=== PATIENT | male | born 1965 | race African-American/Black ===

== ENCOUNTER 2017-03-23 10:43 | Inpatient (IN) | payer OTHER ==
[2017-03-23 11:52] VITALS: BMI 37.8
--- NOTE | 2017-03-23 13:48 | HP ---
CIWA Score - CIWA Score Nausea/Vomitin-No Nausea/No Vomiting Muscle Tremors: 4-Moderate,w/Arms Extend Anxiety: 3 Agitation: 3 Paroxysmal Sweats: No Perspiration Orientation: 0-Oriented Tacttile Disturbances: 2-Mild Itch/Numbness/Burn Auditory Disturbances: 0-None Visual Disturbances: 3-Moderate Sensitivity Headache: 0-None Present CIWA-Ar Total Score: 15 Admission ROS BHS - HPI Chief Complaint: "I'm here for help and to get off of Alcohol and Crack Cocaine." Pt. is here to Detox from Alcohol. Allergies/Adverse Reactions: Allergies Allergy/AdvReac Type Severity Reaction Status Date / Time No Known Allergies Allergy Verified 03/23/17 12:32 History of Present Illness: Pt. is a 51 YO male here to Detox from Alcohol. Pt. has had several previous Detox admissions at [facility] (last: 02/2013). Longest Period of Sobriety in past: 5 years (1999- 2004). Exam Limitations: No Limitations - Ebola screening Have you traveled outside of the country in the last 21 days: No (N) Have you had contact with anyone from an Ebola affected area: No Have you been sick,other than usual withdrawal symptoms: No Do you have a fever: No - Review of Systems Constitutional: Malaise, Changes in sleep, Unexplained wgt Loss (Lost approx. 10 lbs. over last 2 months.) EENT: reports: Blurred Vision Respiratory: reports: No Symptoms reported Cardiac: reports: No Symptoms Reported GI: reports: Indigestion : reports: No Symptoms Reported Musculoskeletal: reports: No Symptoms Reported Integumentary: reports: No Symptoms Reported Neuro: reports: Tremors Endocrine: reports: No Symptoms Reported Hematology: reports: No Symptoms Reported Psychiatric: reports: Judgement Intact, Mood/Affect Appropiate, Orientated x3, Anxious Other Systems: Reviewed and Negative Patient History - Patient Medical History Hx Anemia: No Hx Asthma: No Hx Chronic Obstructive Pulmonary Disease (COPD): No Hx Cancer: No Hx Cardiac Disorders: No Hx Congestive Heart Failure: No Hx Hypertension: Yes Hx Hypercholesterolemia: No Hx Pacemaker: No HX Cerebrovascular Accident: No Hx Seizures: No Hx Dementia: No Hx Diabetes: No Hx Gastrointestinal Disorders: No Hx Liver Disease: No Hx Genitourinary Disorders: No Hx Sexually Transmitted Disorders: No Hx Renal Disease (ESRD): No Hx Thyroid Disease: No Hx Human Immunodeficiency Virus (HIV): No Hx Hepatitis C: No (Last tested: 02/2017: NEGATIVE.) Hx Depression: No Hx Suicide Attempt: No (PATIENT DENIES CURRENT SI / HI.) Hx Schizophrenia: No Other Medical History: Benign superficial growth on posterior head. Plans to have removed. - Patient Surgical History Past Surgical History: No Hx Neurologic Surgery: No Hx Cataract Extraction: No Hx Cardiac Surgery: No Hx Lung Surgery: No Hx Breast Surgery: No Hx Breast Biopsy: No Hx Abdominal Surgery: No Hx Appendectomy: No Hx Cholecystectomy: No Hx Genitourinary Surgery: No Hx Section: No Hx Orthopedic Surgery: No Other Surgical History: SWELLING ON BACK OF THE HEAD SINCE HE WAS 20 YRS. OLD Anesthesia Reaction: No - PPD History Previous Implant?: Yes Documented Results: Negative w/o proof Implanted On Prior [facility] Admission?: Yes Date: 02/23/13 Results: 0 mm PPD to be Administered?: Yes - Reproductive History Patient is a Female of Child Bearing Age (11 -55 yrs old): No (PATIENT IS MALE.) - Smoking Cessation Smoking history: Former smoker Have you smoked in the past 12 months: Yes Aproximately how many cigarettes per day: 1 If you are a former smoker, when did you quit?: Approx. 2 months ago. Cigars Per Day: 0 Hx Chewing Tobacco Use: No Initiated information on smoking cessation: Yes 'Breaking Loose' booklet given: 03/23/17 (GIVEN ON UNIT.) - Substance & Tx. History Hx Alcohol Use: Yes Hx Substance Use: Yes Substance Use Type: Alcohol, Cocaine Hx Substance Use Treatment: Yes (Previous Detox admissions at [facility]; Most Recent : 02/2013.) - Substances Abused Crack Route: Smoking Frequency: 3-6 times per week Amount used: $100 Age of first use: 30 Date of Last Use: 03/23/17 Alcohol-beer Route: Oral Frequency: Daily Amount used: 2-3 6 pks. Age of first use: 17 Date of Last Use: 03/23/17 Family Disease History - Family Disease History Family History: Denies Admission Physical Exam BHS - Vital Signs Vital Signs: Vital Signs - 24 hr 03/23/17 11:49 Temperature 95.4 F L Pulse Rate 89 Respiratory 18 Rate Blood Pressure 156/97 - Physical General Appearance: Yes: No Apparent Distress, Nourished, Appropriately Dressed , Tremorous HEENTM: Yes: Hearing grossly Normal, Normocephalic, Normal Voice, CORBIN, Pharynx Normal Respiratory: Yes: Chest Non-Tender, Lungs Clear, No Respiratory Distress, No Accessory Muscle Use Neck: Yes: No masses,lesions,Nodules, Supple, Trachea in good position Breast: Yes: Breast Exam Deferred Cardiology: Yes: Regular Rhythm, Regular Rate, S1, S2 Abdominal: Yes: Normal Bowel Sounds, Non Tender, Soft, Protuberent Genitourinary: Yes: Within Normal Limits Back: Yes: Normal Inspection Musculoskeletal: Yes: full range of Motion, Gait Steady Extremities: Yes: Normal Range of Motion, Non-Tender, Tremors Neurological: Yes: Fully Oriented, Alert, Normal Mood/Affect, Normal Response Integumentary: Yes: Normal Color, Dry, Warm Lymphatic: Yes: Within Normal Limits - Diagnostic (1) Alcohol dependence with uncomplicated withdrawal Current Visit: Yes Status: Acute (2) Cocaine dependence, uncomplicated Current Visit: Yes Status: Acute (3) 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
[2017-03-23] MEDS ORDERED: P-EPHED 60MG/TRIPROLIDI 2.5MG TABLET PO PRN (14:27)
[2017-03-23] MEDS ORDERED: IBUPROFEN 400 MG TABLET (FP) PO PRN (14:27)
[2017-03-23] MEDS ORDERED: LOPERAMIDE HCL 2 MG CAPSULE PO PRN (14:27)
[2017-03-23] MEDS ORDERED: MAG HYDROX/AL HYDROX/SIMETH 30 ML UNIT-DOSE CUP PO PRN (14:27)
[2017-03-23] MEDS ORDERED: ACETAMINOPHEN 325 MG TABLET (FP) PO PRN (14:27)
[2017-03-23] MEDS ORDERED: chlordiazePOXIDE HCL 25 MG CAPSULE PO PRN (14:27)
[2017-03-23] MEDS ORDERED: MAGNESIUM CITRATE 300 ML BOTTLE PO PRN (14:27)
[2017-03-23] MEDS ORDERED: MAGNESIUM HYDROX 2400MG/30ML ORAL SUSPENSION 30 ML CUP PO PRN (14:27)
[2017-03-23] MEDS ORDERED: MENTHOL/PHENOL 1 EACH UD MM PRN (14:27)
[2017-03-23] MEDS ORDERED: guaiFENesin/D-METHORPHAN HB 10 ML UNIT-DOSE CUPS PO PRN (14:27)
[2017-03-23] MEDS ORDERED: chlordiazePOXIDE HCL 25 MG CAPSULE PO ONE (15:15)
[2017-03-23] MEDS: TOLNAFTATE 1% CREAM 15 GM TUBE TP SCH ×2 (15:32→22:56)
[2017-03-23] MEDS: VALSARTAN 40 MG TABLET (FP) PO SCH (15:40)
[2017-03-23] MEDS: chlordiazePOXIDE HCL 25 MG CAPSULE PO SCH ×2 (17:21→22:56)
[2017-03-23 19:51] LABS: URINE APPEARANCE CLEAR; URINE BILIRUBIN NEGATIVE (NEGATIVE); URINE BLOOD NEGATIVE (NEGATIVE); URINE COLOR LTYELLOW; URINE GLUCOSE (UA) NEGATIVE (NEGATIVE); URINE KETONE NEGATIVE (NEGATIVE); URINE NITRITE NEGATIVE (NEGATIVE); URINE PROTEIN NEGATIVE (NEGATIVE); URINE UROBILINOGEN NEGATIVE mg/dL (0.2-1.0)
[2017-03-23 21:18] LABS: URINE LEUK ESTERASE Negative (NEGATIVE)
[2017-03-23] MEDS: AMMONIUM LACTATE 12% LOTION 225 GM BOTTLE TP SCH (22:56)
[2017-03-23] MEDS: THIAMINE HCL 100 MG TABLET (FP) PO SCH (22:56)
[2017-03-24] MEDS: chlordiazePOXIDE HCL 25 MG CAPSULE PO SCH ×4 (05:56→22:13)
[2017-03-24 10:13] LABS: MCH 22.7 pg (25.7-33.7); MCHC 30.8 g/dl (32.0-35.9); MEAN CELL VOLUME 73.7 fl (80-96); MEAN PLT VOLUME 9.5 fl (7.5-11.1); PLATELET COUNT 179 K/MM3 (134-434); RDW 14.9 % (11.9-15.9); WHITE BLOOD COUNT 4.3 K/mm3 (4.0-10.0)
[2017-03-24] MEDS: AMMONIUM LACTATE 12% LOTION 225 GM BOTTLE TP SCH ×2 (10:31→22:13)
[2017-03-24] MEDS: PRENATAL VITAMINS W/ FOLIC ACID TABLET (FP) PO SCH (10:32)
[2017-03-24] MEDS: TOLNAFTATE 1% CREAM 15 GM TUBE TP SCH ×2 (10:32→22:13)
[2017-03-24 11:11] LABS: ALBUMIN 3.8 g/dl (3.4-5.0); ANION GAP 11 (8-16); BILIRUBIN,TOTAL 0.5 mg/dL (0.2-1.0); CALCIUM 8.8 mg/dL (8.5-10.1); CO2 23 mmol/L (21-32); CREATININE 1.3 mg/dL (0.7-1.3); GLUCOSE,RANDOM 107 mg/dL (74-106); SGOT/AST 6 U/L (15-37); SGPT/ALT 19 U/L (12-78)
[2017-03-24 11:12] LABS: ALK PHOS 35 U/L (45-117); TOT PROT 7.3 g/dl (6.4-8.2)
[2017-03-24] MEDS: VALSARTAN 40 MG TABLET (FP) PO SCH (12:30)
[2017-03-24] MEDS: ENALAPRIL MALEATE 10 MG TABLET (FP) PO SCH (12:31)
--- NOTE | 2017-03-24 16:03 | PN ---
[facility] CIWA - CIWA Score Nausea/Vomitin-No Nausea/No Vomiting Muscle Tremors: 5 Anxiety: 4-Mod. Anxious/Guarded Agitation: 3 Paroxysmal Sweats: 3 Orientation: 0-Oriented Tacttile Disturbances: 2-Mild Itch/Numbness/Burn Auditory Disturbances: 0-None Visual Disturbances: 1-Very Mild Sensitivity Headache: 0-None Present CIWA-Ar Total Score: 18 S Progress Note (SOAP) Subjective: Tremors, Anxious, Sweating. Objective: PT. A & O X 3, OBSERVED AMBULATING ON UNIT. NO ACUTE DISTRESS. PT. DENIES CHEST PAIN. 03/24/17 15:59 Vital Signs Temperature 97.5 F L 03/24/17 13:09 Pulse Rate 98 H 03/24/17 13:09 Respiratory Rate 18 03/24/17 13:09 Blood Pressure 148/85 03/24/17 13:09 O2 Sat by Pulse Oximetry (%) Laboratory Tests 03/23/17 03/24/17 03/24/17 19:00 06:20 06:20 WBC 4.3 D RBC 5.47 D Hgb 12.4 D Hct 40.3 D MCV 73.7 L MCH 22.7 L MCHC 30.8 L RDW 14.9 Plt Count 179 MPV 9.5 D Sodium 141 Potassium 4.2 Chloride 107 Carbon Dioxide 23 Anion Gap 11 BUN 18 Creatinine 1.3 Creat Clearance w eGFR 58.20 Random Glucose 107 H Calcium 8.8 Total Bilirubin 0.5 AST 6 L D ALT 19 D Alkaline Phosphatase 35 L Total Protein 7.3 Albumin 3.8 Urine Color Ltyellow Urine Appearance Clear Urine pH 5.0 Ur Specific [place] 1.021 Urine Protein Negative Urine Glucose (UA) Negative Urine Ketones Negative Urine Blood Negative Urine Nitrite Negative Urine Bilirubin Negative Urine Urobilinogen Negative Ur Leukocyte Esterase Negative RPR Titer 03/24/17 06:20 WBC RBC Hgb Hct MCV MCH MCHC RDW Plt Count MPV Sodium Potassium Chloride Carbon Dioxide Anion Gap BUN Creatinine Creat Clearance w eGFR Random Glucose Calcium Total Bilirubin AST ALT Alkaline Phosphatase Total Protein Albumin Urine Color Urine Appearance Urine pH Ur Specific [place] Urine Protein Urine Glucose (UA) Urine Ketones Urine Blood Urine Nitrite Urine Bilirubin Urine Urobilinogen Ur Leukocyte Esterase RPR Titer Nonreactive LABS NOTED. Assessment: 03/24/17 15:59 WITHDRAWAL SYMPTOMS. Plan: CONTINUE DETOX. ENALAPRIL, 20 MG PO DAILY FOR ELEVATED BP (PATIENT REPORTS THAT HE TOOK THIS MEDICATION IN RECENT PAST PRIOR TO ADMISSION TO DETOX).
--- NOTE | 2017-03-24 16:39 | EKG ---
Test Reason : Blood Pressure : / mmHG Vent. Rate : 087 BPM Atrial Rate : 087 BPM P-R Int : 158 ms QRS Dur : 084 ms QT Int : 342 ms P-R-T Axes : 069 -18 -17 degrees QTc Int : 411 ms NORMAL SINUS RHYTHM NONSPECIFIC T WAVE ABNORMALITY ABNORMAL ECG NO PREVIOUS ECGS AVAILABLE Confirmed by FRANCISCO DODD MD ([id number]) on 03/24/2017 4:39:21 PM Referred By: Confirmed By:FRANCISCO DODD MD
[2017-03-24] MEDS: THIAMINE HCL 100 MG TABLET (FP) PO SCH (22:13)
[2017-03-24] MEDS: hydrOXYzine PAMOATE 50 MG CAPSULE (FP) PO PRN (22:14)
[2017-03-25] MEDS: chlordiazePOXIDE HCL 25 MG CAPSULE PO SCH ×3 (05:53→10:30)
[2017-03-25] MEDS: AMMONIUM LACTATE 12% LOTION 225 GM BOTTLE TP SCH ×2 (10:30→23:25)
[2017-03-25] MEDS: PRENATAL VITAMINS W/ FOLIC ACID TABLET (FP) PO SCH (10:30)
[2017-03-25] MEDS: ENALAPRIL MALEATE 10 MG TABLET (FP) PO SCH (10:30)
[2017-03-25] MEDS: TOLNAFTATE 1% CREAM 15 GM TUBE TP SCH ×2 (10:30→23:25)
[2017-03-25] MEDS: VALSARTAN 40 MG TABLET (FP) PO SCH (10:30)
--- NOTE | 2017-03-25 13:24 | PN ---
S CIWA - CIWA Score Nausea/Vomitin Muscle Tremors: 4-Moderate,w/Arms Extend Anxiety: 4-Mod. Anxious/Guarded Agitation: 2 Paroxysmal Sweats: 3 Orientation: 0-Oriented Tacttile Disturbances: 1-Very Mild Itch/Numbness Auditory Disturbances: 0-None Visual Disturbances: 0-None Headache: 1-Very Mild CIWA-Ar Total Score: 18 BHS Progress Note (SOAP) Subjective: Anxious, sweating, tremor, nausea Objective: 03/25/17 13:23 Last Vital Signs Temp Pulse Resp BP Pulse Ox 97.5 F L 101 H 18 142/90 03/25/17 10:25 03/25/17 10:25 03/25/17 10:25 03/25/17 10:25 Laboratory Tests 03/23/17 03/24/17 03/24/17 19:00 06:20 06:20 WBC 4.3 D RBC 5.47 D Hgb 12.4 D Hct 40.3 D MCV 73.7 L MCH 22.7 L MCHC 30.8 L RDW 14.9 Plt Count 179 MPV 9.5 D Sodium 141 Potassium 4.2 Chloride 107 Carbon Dioxide 23 Anion Gap 11 BUN 18 Creatinine 1.3 Creat Clearance w eGFR 58.20 Random Glucose 107 H Calcium 8.8 Total Bilirubin 0.5 AST 6 L D ALT 19 D Alkaline Phosphatase 35 L Total Protein 7.3 Albumin 3.8 Urine Color Ltyellow Urine Appearance Clear Urine pH 5.0 Ur Specific [place] 1.021 Urine Protein Negative Urine Glucose (UA) Negative Urine Ketones Negative Urine Blood Negative Urine Nitrite Negative Urine Bilirubin Negative Urine Urobilinogen Negative Ur Leukocyte Esterase Negative RPR Titer 03/24/17 06:20 WBC RBC Hgb Hct MCV MCH MCHC RDW Plt Count MPV Sodium Potassium Chloride Carbon Dioxide Anion Gap BUN Creatinine Creat Clearance w eGFR Random Glucose Calcium Total Bilirubin AST ALT Alkaline Phosphatase Total Protein Albumin Urine Color Urine Appearance Urine pH Ur Specific [place] Urine Protein Urine Glucose (UA) Urine Ketones Urine Blood Urine Nitrite Urine Bilirubin Urine Urobilinogen Ur Leukocyte Esterase RPR Titer Nonreactive Labs noted Assessment: 03/25/17 13:23 Withdrawal symptoms Plan: Continue detox Encouraged to drink lots of water
[2017-03-25] MEDS: chlordiazePOXIDE 5 MG CAPSULE PO SCH ×2 (16:42→22:28)
[2017-03-25] MEDS: THIAMINE HCL 100 MG TABLET (FP) PO SCH (22:28)
[2017-03-25] MEDS: hydrOXYzine PAMOATE 50 MG CAPSULE (FP) PO PRN (22:29)
[2017-03-26] MEDS: chlordiazePOXIDE 5 MG CAPSULE PO SCH ×2 (06:23→10:24)
[2017-03-26] MEDS: PRENATAL VITAMINS W/ FOLIC ACID TABLET (FP) PO SCH (10:24)
[2017-03-26] MEDS: TOLNAFTATE 1% CREAM 15 GM TUBE TP SCH ×2 (10:24→23:35)
[2017-03-26] MEDS: AMMONIUM LACTATE 12% LOTION 225 GM BOTTLE TP SCH ×2 (10:25→23:35)
[2017-03-26] MEDS: HYDROCHLOROTHIAZIDE 25 MG TABLET (FP) PO SCH (10:27)
[2017-03-26] MEDS: ENALAPRIL MALEATE 10 MG TABLET (FP) PO SCH ×2 (10:27→23:35)
[2017-03-26] MEDS: METOPROLOL TARTRATE 50 MG TABLET (FP) PO SCH ×2 (10:28→23:35)
--- NOTE | 2017-03-26 10:43 | PN ---
[facility] Progress Note (SOAP) Subjective: IRRITABILITY,AGITATIONS,SWEATS. PT ANXIOUS ABOUT AFTERCARE. ENCOURAGED PATIENT TO FOLLOW UP WITH HIS COUNSELOR SHARON TODAY TO FINALIZE AFTERCARE PLANS. PT HAD AN EXTREME ELEVATION OFBP THIS MORNING WHILE EXHIBITING WORRIES OVER TOMORROW'S DISCHARGE DAY. PT IS ON ENALAPRIL 20 MG PO BID, HYDROCHLOROTHIAZIDE 25 MG DAILY AND METOPROLOL TAR 50 MG PO BID. D/C'D PREVIOUS ADMISSION MED [facility] AND RESTARTED PT'S HOME MEDS. Objective: 03/26/17 10:39 Vital Signs Temperature 96.6 F L 03/26/17 09:07 Pulse Rate 109 H 03/26/17 09:07 Respiratory Rate 20 03/26/17 09:07 Blood Pressure 180/109 03/26/17 09:07 O2 Sat by Pulse Oximetry (%) Laboratory Last Values WBC 4.3 K/mm3 (4.0-10.0) D 03/24/17 06:20 RBC 5.47 M/mm3 (4.00-5.60) D 03/24/17 06:20 Hgb 12.4 GM/dL (11.7-16.9) D 03/24/17 06:20 Hct 40.3 % (35.4-49) D 03/24/17 06:20 MCV 73.7 fl (80-96) L 03/24/17 06:20 MCH 22.7 pg (25.7-33.7) L 03/24/17 06:20 MCHC 30.8 g/dl (32.0-35.9) L 03/24/17 06:20 RDW 14.9 % (11.9-15.9) 03/24/17 06:20 Plt Count 179 K/MM3 (134-434) 03/24/17 06:20 MPV 9.5 fl (7.5-11.1) D 03/24/17 06:20 Sodium 141 mmol/L (136-145) 03/24/17 06:20 Potassium 4.2 mmol/L (3.5-5.1) 03/24/17 06:20 Chloride 107 mmol/L (98-107) 03/24/17 06:20 Carbon Dioxide 23 mmol/L (21-32) 03/24/17 06:20 Anion Gap 11 (8-16) 03/24/17 06:20 BUN 18 mg/dL (7-18) 03/24/17 06:20 Creatinine 1.3 mg/dL (0.7-1.3) 03/24/17 06:20 Creat Clearance w eGFR 58.20 (>60) 03/24/17 06:20 Random Glucose 107 mg/dL (74-106) H 03/24/17 06:20 Calcium 8.8 mg/dL (8.5-10.1) 03/24/17 06:20 Total Bilirubin 0.5 mg/dL (0.2-1.0) 03/24/17 06:20 AST 6 U/L (15-37) L D 03/24/17 06:20 ALT 19 U/L (12-78) D 03/24/17 06:20 Alkaline Phosphatase 35 U/L (45-117) L 03/24/17 06:20 Total Protein 7.3 g/dl (6.4-8.2) 03/24/17 06:20 Albumin 3.8 g/dl (3.4-5.0) 03/24/17 06:20 Urine Color Ltyellow 03/23/17 19:00 Urine Appearance Clear 03/23/17 19:00 Urine pH 5.0 (5.0-8.0) 03/23/17 19:00 Ur Specific [place] 1.021 (1.001-1.035) 03/23/17 19:00 Urine Protein Negative (NEGATIVE) 03/23/17 19:00 Urine Glucose (UA) Negative (NEGATIVE) 03/23/17 19:00 Urine Ketones Negative (NEGATIVE) 03/23/17 19:00 Urine Blood Negative (NEGATIVE) 03/23/17 19:00 Urine Nitrite Negative (NEGATIVE) 03/23/17 19:00 Urine Bilirubin Negative (NEGATIVE) 03/23/17 19:00 Urine Urobilinogen Negative mg/dL (0.2-1.0) 03/23/17 19:00 Ur Leukocyte Esterase Negative (NEGATIVE) 03/23/17 19:00 RPR Titer Nonreactive (NONREACTIVE) 03/24/17 06:20 Assessment: 03/26/17 10:39 WITHDRAWAL SX Plan: CONTINUE DETOX
[2017-03-26] MEDS: chlordiazePOXIDE HCL 10 MG CAPSULE PO SCH ×2 (17:51→23:35)
[2017-03-26] MEDS: THIAMINE HCL 100 MG TABLET (FP) PO SCH (23:35)
[2017-03-27] MEDS: chlordiazePOXIDE HCL 10 MG CAPSULE PO SCH (05:26)
[2017-03-27 06:10] VITALS: PULSE 86
[2017-03-27 09:15] VITALS: BP 118/75; TEMP 98.4
[2017-03-27] MEDS: ENALAPRIL MALEATE 10 MG TABLET (FP) PO SCH (10:30)
[2017-03-27] MEDS: HYDROCHLOROTHIAZIDE 25 MG TABLET (FP) PO SCH (10:30)
[2017-03-27] MEDS: METOPROLOL TARTRATE 50 MG TABLET (FP) PO SCH (10:30)
[2017-03-27] MEDS: PRENATAL VITAMINS W/ FOLIC ACID TABLET (FP) PO SCH (10:30)
[2017-03-27] MEDS: TOLNAFTATE 1% CREAM 15 GM TUBE TP SCH (10:30)
[2017-03-27] MEDS: AMMONIUM LACTATE 12% LOTION 225 GM BOTTLE TP SCH (10:31)
--- NOTE | 2017-03-27 10:55 | DS ---
[facility] Detox Discharge Summary Admission Date: 03/23/17 Discharge Date: 03/27/17 - History Present History: Alcohol Dependence, Cocaine Dependence Additional Comments: DETOX COMPLETED. ALERT O X 3. NAD. PT INSTRUCTED TO FOLLOW UP WITH PMD AT [facility] FOR MEDICAL MANAGEMENT OF COMORBID CONDITIONS. THIRTY DAYS RX SENT TO [facility] TO BE PICKED UP BY PATIENT FOR ENALAPRIL, HYDROCHLOROTHIAZIDE AND METOPROLOL. Pertinent Past History: HTN BENIGN LIPOMATOUS NEOPLASM OF SKIN, HEAD - Physical Exam Results Vital Signs: Vital Signs Temperature 98.4 F 03/27/17 09:13 Pulse Rate 86 03/27/17 09:13 Respiratory Rate 18 03/27/17 09:13 Blood Pressure 118/75 03/27/17 09:13 O2 Sat by Pulse Oximetry (%) Pertinent Admission Physical Exam Findings: WITHDRAWAL SX Laboratory Last Values WBC 4.3 K/mm3 (4.0-10.0) D 03/24/17 06:20 RBC 5.47 M/mm3 (4.00-5.60) D 03/24/17 06:20 Hgb 12.4 GM/dL (11.7-16.9) D 03/24/17 06:20 Hct 40.3 % (35.4-49) D 03/24/17 06:20 MCV 73.7 fl (80-96) L 03/24/17 06:20 MCH 22.7 pg (25.7-33.7) L 03/24/17 06:20 MCHC 30.8 g/dl (32.0-35.9) L 03/24/17 06:20 RDW 14.9 % (11.9-15.9) 03/24/17 06:20 Plt Count 179 K/MM3 (134-434) 03/24/17 06:20 MPV 9.5 fl (7.5-11.1) D 03/24/17 06:20 Sodium 141 mmol/L (136-145) 03/24/17 06:20 Potassium 4.2 mmol/L (3.5-5.1) 03/24/17 06:20 Chloride 107 mmol/L (98-107) 03/24/17 06:20 Carbon Dioxide 23 mmol/L (21-32) 03/24/17 06:20 Anion Gap 11 (8-16) 03/24/17 06:20 BUN 18 mg/dL (7-18) 03/24/17 06:20 Creatinine 1.3 mg/dL (0.7-1.3) 03/24/17 06:20 Creat Clearance w eGFR 58.20 (>60) 03/24/17 06:20 Random Glucose 107 mg/dL (74-106) H 03/24/17 06:20 Calcium 8.8 mg/dL (8.5-10.1) 03/24/17 06:20 Total Bilirubin 0.5 mg/dL (0.2-1.0) 03/24/17 06:20 AST 6 U/L (15-37) L D 03/24/17 06:20 ALT 19 U/L (12-78) D 03/24/17 06:20 Alkaline Phosphatase 35 U/L (45-117) L 03/24/17 06:20 Total Protein 7.3 g/dl (6.4-8.2) 03/24/17 06:20 Albumin 3.8 g/dl (3.4-5.0) 03/24/17 06:20 Urine Color Ltyellow 03/23/17 19:00 Urine Appearance Clear 03/23/17 19:00 Urine pH 5.0 (5.0-8.0) 03/23/17 19:00 Ur Specific [place] 1.021 (1.001-1.035) 03/23/17 19:00 Urine Protein Negative (NEGATIVE) 03/23/17 19:00 Urine Glucose (UA) Negative (NEGATIVE) 03/23/17 19:00 Urine Ketones Negative (NEGATIVE) 03/23/17 19:00 Urine Blood Negative (NEGATIVE) 03/23/17 19:00 Urine Nitrite Negative (NEGATIVE) 03/23/17 19:00 Urine Bilirubin Negative (NEGATIVE) 03/23/17 19:00 Urine Urobilinogen Negative mg/dL (0.2-1.0) 03/23/17 19:00 Ur Leukocyte Esterase Negative (NEGATIVE) 03/23/17 19:00 RPR Titer Nonreactive (NONREACTIVE) 03/24/17 06:20 - Treatment Hospital Course: Detox Protocol Followed, Detoxed Safely, Responded well, Discharged Condition Good, Rehab Referral Accepted Patient has Accepted a Rehab Referral to: [facility] - Medication Discharge Medications: Ambulatory Orders Enalapril Maleate [Vasotec] 20 mg PO BID #60 tablet 03/27/17 Hydrochlorothiazide 25 mg PO DAILY #30 tablet 03/27/17 Metoprolol Tartrate 50 mg PO BID #60 tablet 03/27/17 - Diagnosis (1) Alcohol dependence with uncomplicated withdrawal Current Visit: Yes Status: Acute (2) 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
== END 2017-03-27 12:15 | disposition home or self-care (01) | DRG 774 ==
LOC: YASAS 10:43 → Y3N 14:06
PROVIDERS: ADMIT Internal Medicine; ATTEND Internal Medicine
PROC: HZ2ZZZZ Detoxification Services for Substance Abuse Treatment (ICD-10-PCS; principal; 2017-03-23)
DX: F10.230 Alcohol dependence with withdrawal, uncomplicated (principal); F14.20 Cocaine dependence, uncomplicated; I10 Essential (primary) hypertension; D17.0 Benign lipomatous neoplasm of skin and subcutaneous tissue of head, face and neck
CPT/HCPCS: 36415; 80053; 81003; 85027; 86593; 93005; 93010

== ENCOUNTER 2017-10-22 11:52 | Inpatient (IN) | payer OTHER ==
[2017-10-22 14:01] VITALS: BMI 35.6
--- NOTE | 2017-10-22 14:28 | HP ---
CIWA Score - CIWA Score Nausea/Vomitin Muscle Tremors: 3 Anxiety: 3 Agitation: 3 Paroxysmal Sweats: 1-Minimal Palms Moist Orientation: 0-Oriented Tacttile Disturbances: 2-Mild Itch/Numbness/Burn Auditory Disturbances: 2-Mild Harshness/Frighten Visual Disturbances: 1-Very Mild Sensitivity Headache: 2-Mild CIWA-Ar Total Score: 20 Admission ROS BHS - HPI Chief Complaint: i need help to stop drinking alcohol and cocaine Allergies/Adverse Reactions: Allergies Allergy/AdvReac Type Severity Reaction Status Date / Time No Known Allergies Allergy Verified 10/22/17 14:13 History of Present Illness: this 52 years old male with alcohol and cocaine dependence,seeking detox, withdrawal symptom,last detox [facility] 03/23/17 to 03/27/17 history of hypertension insomnia longest period of sobriety 5 years - Ebola screening Have you traveled outside of the country in the last 21 days: No (N) Have you had contact with anyone from an Ebola affected area: No Have you been sick,other than usual withdrawal symptoms: No Do you have a fever: No - Review of Systems Constitutional: Chills, Loss of Appetite, Malaise, Night Sweats, Changes in sleep, Weakness EENT: reports: Nose Congestion, Other (lipoma of occipital area) Respiratory: reports: No Symptoms reported Cardiac: reports: No Symptoms Reported GI: reports: Diarrhea, Nausea, Vomiting, Abdominal cramping : reports: No Symptoms Reported Musculoskeletal: reports: Back Pain, Muscle Pain Integumentary: reports: Dryness Neuro: reports: Headache, Tremors Endocrine: reports: No Symptoms Reported Hematology: reports: No Symptoms Reported Psychiatric: reports: No Sypmtoms Reported, Judgement Intact, Mood/Affect Appropiate, Orientated x3 (insomnia) Patient History - Patient Medical History Hx Anemia: No Hx Asthma: No Hx Chronic Obstructive Pulmonary Disease (COPD): No Hx Cancer: No Hx Cardiac Disorders: No Hx Congestive Heart Failure: No Hx Hypertension: Yes (on med) Hx Hypercholesterolemia: No Hx Pacemaker: No HX Cerebrovascular Accident: No Hx Seizures: No Hx Dementia: No Hx Diabetes: No Hx Gastrointestinal Disorders: No Hx Liver Disease: No Hx Genitourinary Disorders: No Hx Sexually Transmitted Disorders: No Hx Renal Disease (ESRD): No Hx Thyroid Disease: No Hx Human Immunodeficiency Virus (HIV): No (last 08/29 negative) Hx Hepatitis C: No (Last tested: 02/2017: NEGATIVE.) Hx Depression: No Hx Suicide Attempt: No (PATIENT DENIES CURRENT SI / HI.) Hx Bipolar Disorder: No Hx Schizophrenia: No Other Medical History: no suicidal,no homicidal - Patient Surgical History Past Surgical History: No Hx Neurologic Surgery: No Hx Cataract Extraction: No Hx Cardiac Surgery: No Hx Lung Surgery: No Hx Breast Surgery: No Hx Breast Biopsy: No Hx Abdominal Surgery: No Hx Appendectomy: No Hx Cholecystectomy: No Hx Genitourinary Surgery: No Hx Section: No Hx Orthopedic Surgery: No Other Surgical History: SWELLING ON BACK OF THE HEAD SINCE HE WAS 20 YRS. OLD Anesthesia Reaction: No - PPD History Previous Implant?: Yes Implanted On Prior [facility] Admission?: Yes Date: 03/25/17 Results: 0 mm PPD to be Administered?: No - Smoking Cessation Smoking history: Former smoker Have you smoked in the past 12 months: Yes Aproximately how many cigarettes per day: 1 If you are a former smoker, when did you quit?: Approx. 2 months ago. Cigars Per Day: 0 Hx Chewing Tobacco Use: No Initiated information on smoking cessation: Yes 'Breaking Loose' booklet given: 10/22/17 - Substance & Tx. History Hx Alcohol Use: Yes Hx Substance Use: Yes Substance Use Type: Alcohol, Cocaine Hx Substance Use Treatment: Yes ([facility] 03/23/17to 03/27/17) - Substances Abused Alcohol Route: Oral Frequency: Daily Amount used: 4-5 40 Oz BEERS Age of first use: 17 Date of Last Use: 10/22/17 Cocaine Route: Smoking Frequency: Daily Amount used: $100 AND UP Age of first use: 30 Date of Last Use: 10/22/17 Family Disease History - Family Disease History Family History: Denies Admission Physical Exam S - Vital Signs Vital Signs: Vital Signs - 24 hr 10/22/17 13:56 Temperature 98.3 F Pulse Rate 96 H Respiratory 16 Rate Blood Pressure 156/96 - Physical General Appearance: Yes: Moderate Distress, Tremorous, Irritable, Sweating, Anxious, Other (mass occipital area 4x4 cm) HEENTM: Yes: Normal ENT Inspection, CORBIN, Pharynx Normal Respiratory: Yes: Lungs Clear, Normal Breath Sounds, No Respiratory Distress Neck: Yes: Within Normal Limits Breast: Yes: Within Normal Limits Cardiology: Yes: Within Normal Limits, Regular Rhythm, Regular Rate, S1, S2 Abdominal: Yes: Within Normal Limits, Normal Bowel Sounds, Non Tender, Flat, Soft Genitourinary: Yes: Within Normal Limits Back: Yes: Within Normal Limits Musculoskeletal: Yes: Within Normal Limits, Back pain, Muscle Pain Extremities: Yes: Tremors Neurological: Yes: databases software consultant II-XII NML intact, Alert, Motor Strength 5/5 Integumentary: Yes: Dry - Diagnostic (1) Alcohol dependence with uncomplicated withdrawal Current Visit: No Status: Acute (2) Cocaine dependence, uncomplicated Current Visit: No Status: Acute (3) Hypertension Current Visit: No Status: Chronic Qualifiers: Hypertension type: essential hypertension Qualified Code(s): I10 - Essential (primary) hypertension (4) Lipoma Current Visit: Yes Status: Acute Cleared for Admission S - Detox or Rehab [facility] Level of Care: Medically Managed Detox Regimen/Protocol: Librium S Breath Alcohol Content Breath Alcohol Content: 0 Urine Drug Screen - Results Drug Screen Negative: No Urine Drug Screen Results: ELIZABETH-Cocaine
[2017-10-22] MEDS ORDERED: MENTHOL/PHENOL 1 EACH UD MM PRN (14:38)
[2017-10-22] MEDS ORDERED: chlordiazePOXIDE HCL 25 MG CAPSULE PO PRN (14:38)
[2017-10-22] MEDS ORDERED: guaiFENesin/D-METHORPHAN HB 10 ML UNIT-DOSE CUPS PO PRN (14:38)
[2017-10-22] MEDS ORDERED: ACETAMINOPHEN 325 MG TABLET (FP) PO PRN (14:38)
[2017-10-22] MEDS ORDERED: MAGNESIUM HYDROX 2400MG/30ML ORAL SUSPENSION 30 ML CUP PO PRN (14:38)
[2017-10-22] MEDS ORDERED: MAG HYDROX/AL HYDROX/SIMETH 30 ML UNIT-DOSE CUP PO PRN (14:38)
[2017-10-22] MEDS ORDERED: MAGNESIUM CITRATE 300 ML BOTTLE PO PRN (14:38)
[2017-10-22] MEDS ORDERED: P-EPHED 60MG/TRIPROLIDI 2.5MG TABLET PO PRN (14:38)
[2017-10-22] MEDS ORDERED: IBUPROFEN 400 MG TABLET (FP) PO PRN (14:38)
[2017-10-22] MEDS ORDERED: LOPERAMIDE HCL 2 MG CAPSULE PO PRN (14:38)
[2017-10-22] MEDS ORDERED: hydrOXYzine PAMOATE 50 MG CAPSULE (FP) PO PRN (14:38)
[2017-10-22] MEDS ORDERED: chlordiazePOXIDE HCL 25 MG CAPSULE PO ONE (15:30)
[2017-10-22] MEDS: chlordiazePOXIDE HCL 25 MG CAPSULE PO SCH ×2 (16:30→22:17)
--- NOTE | 2017-10-22 17:23 | CONSULT ---
[facility] Psychiatric Consult - Data Date of interview: 10/22/17 Admission source: [facility] Identifying data: Readmission to [facility] for this 52 y/o AA male seeking detox treatment on for alcohol and cocaine (crack) dependence.Patient is ,a father of four,domiciled and employed. Substance Abuse History: Confirmed by the patient in my interview.Smoking history: Former smoker. Have you smoked in the past 12 months: Yes. Aproximately how many cigarettes per day: 1. If you are a former smoker, when did you quit?: Approx. 2 months ago. Cigars Per Day: 0. Hx Chewing Tobacco Use : No. Initiated information on smoking cessation: Yes. 'Breaking Loose' booklet given: 10/22/17. - Substance & Tx. History. Hx Alcohol Use: Yes. Hx Substance Use: Yes. Substance Use Type: Alcohol, Cocaine. Hx Substance Use Treatment: Yes ([facility] 03/23/17to 03/27/17). - Substances Abused. Alcohol. Route: Oral. Frequency: Daily. Amount used: 4-5 40 Oz BEERS. Age of first use : 17. Date of Last Use: 10/22/17. Cocaine. Route: Smoking. Frequency: Daily. Amount used: $100 AND UP. Age of first use: 30. Date of Last Use: 03/31 Medical History: Hypertension and lipoma (occipital region).No known allergies. Psychiatric History: Patient denies. Physical/Sexual Abuse/Trauma History: Patient denies. Additional Comment: Urine Drug Screen Results: ELIZABETH-Cocaine.Noted. Mental Status Exam - Mental Status Exam Alert and Oriented to: Time, Place, Person Cognitive Function: Good Patient Appearance: Well Groomed (presence of a soft mass protruding in the back of the head : occipital area ; steady growth for several years) Mood: Hopeful, Euthymic Affect: Appropriate, Normal Range Patient Behavior: Fatigued, Appropriate, Cooperative Speech Pattern: Clear, Appropriate Voice Loudness: Normal Thought Process: Intact, Goal Oriented Thought Disorder: Not Present Hallucinations: Denies Suicidal Ideation: Denies Homicidal Ideation: Denies Insight/Judgement: Fair Sleep: Poorly, Difficulty falling asleep Appetite: Good Muscle strength/Tone: Normal Gait/Station: Normal Psychiatric Findings - Problem List ([place] 1, 2,3) (1) Alcohol dependence with uncomplicated withdrawal Current Visit: Yes Status: Acute (2) Cocaine dependence, uncomplicated Current Visit: Yes Status: Acute (3) Nicotine dependence Current Visit: Yes Status: Acute (4) Insomnia Current Visit: Yes Status: Acute - Initial Treatment Plan Initial Treatment Plan: Psychoeducation.Sleep hygiene.Detoxification in progress.Ambien 10 mg po hs prn.Patient is made aware of the risk for parasomnias.Mr Purcell agrees to this careplan.Observation.
[2017-10-22] MEDS: METOPROLOL TARTRATE 50 MG TABLET (FP) PO SCH (17:42)
[2017-10-22] MEDS: ENALAPRIL MALEATE 10 MG TABLET (FP) PO SCH (17:43)
[2017-10-22] MEDS ORDERED: METOPROLOL TARTRATE 50 MG TABLET (FP) PO SCH ×2 (18:00→22:00)
[2017-10-22 18:09] LABS: URINE APPEARANCE CLEAR; URINE BILIRUBIN NEGATIVE (<2.0 mg/dL); URINE BLOOD NEGATIVE (NEGATIVE); URINE COLOR YELLOW; URINE GLUCOSE (UA) NEGATIVE (NEGATIVE); URINE KETONE NEGATIVE (NEGATIVE); URINE LEUK ESTERASE NEGATIVE (NEGATIVE); URINE NITRITE NEGATIVE (NEGATIVE); URINE UROBILINOGEN NEGATIVE mg/dL (0.2-1.0)
[2017-10-22 18:16] LABS: URINE PROTEIN 1+ (NEGATIVE)
[2017-10-22 19:07] LABS: EPI CELLS FEW /HPF (FEW); URINE BACTERIA RARE /hpf (NONE SEEN); URINE HYALINE CAST 11 /lpf; URINE MUCUS MANY
[2017-10-22] MEDS ORDERED: MELATONIN 5 MG TABLETS PO PRN (22:00)
[2017-10-22] MEDS ORDERED: ENALAPRIL MALEATE 10 MG TABLET (FP) PO SCH (22:00)
[2017-10-22] MEDS: ZOLPIDEM TARTRATE 10 MG TABLET (PARK CARE ONLY) PO PRN (22:17)
[2017-10-22] MEDS: ATORVASTATIN CA 10 MG TABLET (FP) PO SCH (22:17)
[2017-10-22] MEDS: THIAMINE HCL 100 MG TABLET (FP) PO SCH (22:17)
[2017-10-23] MEDS: chlordiazePOXIDE HCL 25 MG CAPSULE PO SCH ×4 (06:17→22:08)
--- NOTE | 2017-10-23 10:15 | PN ---
S CIWA - CIWA Score Nausea/Vomitin-No Nausea/No Vomiting Muscle Tremors: 4-Moderate,w/Arms Extend Anxiety: 4-Mod. Anxious/Guarded Agitation: 4-Moderately Restless Paroxysmal Sweats: 1-Minimal Palms Moist Orientation: 0-Oriented Tacttile Disturbances: 0-None Auditory Disturbances: 0-None Visual Disturbances: 0-None Headache: 0-None Present CIWA-Ar Total Score: 13 BHS Progress Note (SOAP) Subjective: ANXIETY,SWEATS. ALERT O X 3. OOB AMBULATING WITH STEADY GAIT. Objective: 10/23/17 10:16 Vital Signs 10/23/17 10/23/17 10/23/17 03:30 06:18 09:20 Temperature 97.4 F L 97.4 F L Pulse Rate 77 82 Respiratory 18 20 20 Rate Blood Pressure 144/99 158/105 10/23/17 09:26 Temperature Pulse Rate Respiratory Rate Blood Pressure 161/100 Laboratory Tests 10/22/17 17:45 Urine Color Yellow Urine Appearance Clear Urine pH 5.0 Ur Specific [place] 1.029 Urine Protein 1+ H Urine Glucose (UA) Negative Urine Ketones Negative Urine Blood Negative Urine Nitrite Negative Urine Bilirubin Negative Urine Urobilinogen Negative Ur Leukocyte Esterase Negative Urine WBC (Auto) 11 Urine RBC (Auto) 5 Ur Epithelial Cells Few Urine Bacteria Rare Hyaline Casts 11 Urine Mucus Many Assessment: 10/23/17 10:17 WITHDRAWAL SX HX HTN-ON MEDS Plan: CONTINUE DETOX INCREASE PO FLUIDS.
[2017-10-23 10:17] LABS: HEMATOCRIT 40.3 % (35.4-49); HEMOGLOBIN 12.9 GM/dL (11.7-16.9); MCHC 32.1 g/dl (32.0-35.9); MEAN CELL VOLUME 74.8 fl (80-96); MEAN PLT VOLUME 10.4 fl (7.5-11.1); PLATELET COUNT 173 K/MM3 (134-434); RBC 5.38 M/mm3 (4.00-5.60); RDW 14.7 % (11.9-15.9); WHITE BLOOD COUNT 4.3 K/mm3 (4.0-10.0)
[2017-10-23 10:22] LABS: CHLORIDE 106 mmol/L (98-107); POTASSIUM 4.2 mmol/L (3.5-5.1); SODIUM 140 mmol/L (136-145)
[2017-10-23] MEDS: PRENATAL VITAMINS W/ FOLIC ACID TABLET (FP) PO SCH (10:42)
[2017-10-23] MEDS: ENALAPRIL MALEATE 10 MG TABLET (FP) PO SCH ×2 (10:42→17:31)
[2017-10-23] MEDS: METOPROLOL TARTRATE 50 MG TABLET (FP) PO SCH ×2 (10:42→17:30)
[2017-10-23] MEDS: HYDROCHLOROTHIAZIDE 25 MG TABLET (FP) PO SCH (10:42)
[2017-10-23 12:13] LABS: ALBUMIN 3.8 g/dl (3.4-5.0); ANION GAP 10 (8-16); BILIRUBIN,TOTAL 0.3 mg/dL (0.2-1.0); BLOOD UREA NITROGEN 23 mg/dL (7-18); CALCIUM 8.5 mg/dL (8.5-10.1); CO2 24 mmol/L (21-32); CREATININE 1.2 mg/dL (0.7-1.3); GLUCOSE,RANDOM 127 mg/dL (74-106); SGOT/AST 14 U/L (15-37); SGPT/ALT 27 U/L (12-78); TOT PROT 7.6 g/dl (6.4-8.2)
--- NOTE | 2017-10-23 12:25 | EKG ---
Test Reason : Blood Pressure : / mmHG Vent. Rate : 082 BPM Atrial Rate : 082 BPM P-R Int : 158 ms QRS Dur : 094 ms QT Int : 362 ms P-R-T Axes : 062 -21 -05 degrees QTc Int : 422 ms NORMAL SINUS RHYTHM POSSIBLE LEFT ATRIAL ENLARGEMENT BORDERLINE ECG WHEN COMPARED WITH ECG OF 23-MAR-2017 16:12, NO SIGNIFICANT CHANGE WAS FOUND Confirmed by MD MARIXA, YAEL ([id number]) on 10/23/2017 12:25:05 PM Referred By: Confirmed By:YAEL CALVIN MD
[2017-10-23 12:50] LABS: ALK PHOS 38 U/L (45-117)
[2017-10-23] MEDS: THIAMINE HCL 100 MG TABLET (FP) PO SCH (22:08)
[2017-10-23] MEDS: ZOLPIDEM TARTRATE 10 MG TABLET (PARK CARE ONLY) PO PRN (22:09)
[2017-10-23] MEDS: ATORVASTATIN CA 10 MG TABLET (FP) PO SCH (22:09)
[2017-10-24] MEDS: chlordiazePOXIDE HCL 25 MG CAPSULE PO SCH ×2 (06:26→10:48)
[2017-10-24] MEDS: HYDROCHLOROTHIAZIDE 25 MG TABLET (FP) PO SCH (10:48)
[2017-10-24] MEDS: PRENATAL VITAMINS W/ FOLIC ACID TABLET (FP) PO SCH (10:48)
[2017-10-24] MEDS: METOPROLOL TARTRATE 50 MG TABLET (FP) PO SCH ×2 (10:48→18:27)
[2017-10-24] MEDS: ENALAPRIL MALEATE 10 MG TABLET (FP) PO SCH ×2 (10:48→18:28)
--- NOTE | 2017-10-24 11:59 | PN ---
[facility] CIWA - CIWA Score Nausea/Vomitin-No Nausea/No Vomiting Muscle Tremors: 4-Moderate,w/Arms Extend Anxiety: 4-Mod. Anxious/Guarded Agitation: 4-Moderately Restless Paroxysmal Sweats: 1-Minimal Palms Moist Orientation: 0-Oriented Tacttile Disturbances: 3-Moderate Itch/Numb/Burn Auditory Disturbances: 0-None Visual Disturbances: 0-None Headache: 0-None Present CIWA-Ar Total Score: 16 BHS Progress Note (SOAP) Subjective: ANXIETY,SWEATS,IRRITABILITY, INSOMNIA HX-AMBIEN NOT EFFECTIVE. REQUESTS MED REVIEW WITH PSYCH MVidhya Objective: 10/24/17 11:58 Vital Signs 10/24/17 10/24/17 06:45 09:28 Temperature 98.7 F 98.5 F Pulse Rate 83 89 Respiratory 20 18 Rate Blood Pressure 148/92 144/86 Laboratory Tests 10/22/17 10/23/17 10/23/17 17:45 05:50 05:50 WBC 4.3 RBC 5.38 Hgb 12.9 Hct 40.3 MCV 74.8 L MCH 24.0 L MCHC 32.1 RDW 14.7 Plt Count 173 MPV 10.4 Sodium 140 Potassium 4.2 Chloride 106 Carbon Dioxide 24 Anion Gap 10 BUN 23 H D Creatinine 1.2 Creat Clearance w eGFR > 60 Random Glucose 127 H Calcium 8.5 Total Bilirubin 0.3 D AST 14 L D ALT 27 D Alkaline Phosphatase 38 L Total Protein 7.6 Albumin 3.8 Urine Color Yellow Urine Appearance Clear Urine pH 5.0 Ur Specific [place] 1.029 Urine Protein 1+ H Urine Glucose (UA) Negative Urine Ketones Negative Urine Blood Negative Urine Nitrite Negative Urine Bilirubin Negative Urine Urobilinogen Negative Ur Leukocyte Esterase Negative Urine WBC (Auto) 11 Urine RBC (Auto) 5 Ur Epithelial Cells Few Urine Bacteria Rare Hyaline Casts 11 Urine Mucus Many RPR Titer 10/23/17 05:50 WBC RBC Hgb Hct MCV MCH MCHC RDW Plt Count MPV Sodium Potassium Chloride Carbon Dioxide Anion Gap BUN Creatinine Creat Clearance w eGFR Random Glucose Calcium Total Bilirubin AST ALT Alkaline Phosphatase Total Protein Albumin Urine Color Urine Appearance Urine pH Ur Specific [place] Urine Protein Urine Glucose (UA) Urine Ketones Urine Blood Urine Nitrite Urine Bilirubin Urine Urobilinogen Ur Leukocyte Esterase Urine WBC (Auto) Urine RBC (Auto) Ur Epithelial Cells Urine Bacteria Hyaline Casts Urine Mucus RPR Titer Nonreactive Assessment: 10/24/17 11:58 WITHDRAWAL SX Plan: CONTINUE DETOX F/U WITH PSYCH MD TODAY.
[2017-10-24] MEDS: chlordiazePOXIDE 5 MG CAPSULE PO SCH ×2 (17:27→22:28)
--- NOTE | 2017-10-24 17:43 | PN ---
[facility] Progress Note Note: Psychiatry Attending's note (follow-up) : Contacted by medical [employer] Jonathan. Issue : complaint of insomnia. Ambien not effective as per referral note. Approached patient at bedside today (around 3 pm). Mr Purcell is found awake,resting.Patient declines interview. " I am fine.I don't have anything to discuss with psychiatrists." End of encounter.No intervention.
[2017-10-24] MEDS: THIAMINE HCL 100 MG TABLET (FP) PO SCH (22:27)
[2017-10-24] MEDS: ZOLPIDEM TARTRATE 10 MG TABLET (PARK CARE ONLY) PO PRN (22:27)
[2017-10-24] MEDS: ATORVASTATIN CA 10 MG TABLET (FP) PO SCH (22:27)
[2017-10-25] MEDS: chlordiazePOXIDE 5 MG CAPSULE PO SCH ×2 (06:00→10:37)
[2017-10-25] MEDS: HYDROCHLOROTHIAZIDE 25 MG TABLET (FP) PO SCH (10:36)
[2017-10-25] MEDS: METOPROLOL TARTRATE 50 MG TABLET (FP) PO SCH ×2 (10:37→17:10)
[2017-10-25] MEDS: PRENATAL VITAMINS W/ FOLIC ACID TABLET (FP) PO SCH (10:37)
[2017-10-25] MEDS: ENALAPRIL MALEATE 10 MG TABLET (FP) PO SCH ×2 (10:37→17:10)
--- NOTE | 2017-10-25 11:40 | PN ---
[facility] Progress Note (SOAP) Subjective: ALERT O X 3. OOB AMBULATING WITH STEADY GAIT. C/O INSOMNIA. WAS SEEN YESTERDAY BY PSYCH RE:INSOMNIA. Objective: 10/25/17 11:39 Vital Signs 10/25/17 09:26 Temperature 97.8 F Pulse Rate 92 H Respiratory 20 Rate Blood Pressure 154/94 Laboratory Tests 10/22/17 10/23/17 10/23/17 17:45 05:50 05:50 WBC 4.3 RBC 5.38 Hgb 12.9 Hct 40.3 MCV 74.8 L MCH 24.0 L MCHC 32.1 RDW 14.7 Plt Count 173 MPV 10.4 Sodium 140 Potassium 4.2 Chloride 106 Carbon Dioxide 24 Anion Gap 10 BUN 23 H D Creatinine 1.2 Creat Clearance w eGFR > 60 Random Glucose 127 H Calcium 8.5 Total Bilirubin 0.3 D AST 14 L D ALT 27 D Alkaline Phosphatase 38 L Total Protein 7.6 Albumin 3.8 Urine Color Yellow Urine Appearance Clear Urine pH 5.0 Ur Specific [place] 1.029 Urine Protein 1+ H Urine Glucose (UA) Negative Urine Ketones Negative Urine Blood Negative Urine Nitrite Negative Urine Bilirubin Negative Urine Urobilinogen Negative Ur Leukocyte Esterase Negative Urine WBC (Auto) 11 Urine RBC (Auto) 5 Ur Epithelial Cells Few Urine Bacteria Rare Hyaline Casts 11 Urine Mucus Many RPR Titer 10/23/17 05:50 WBC RBC Hgb Hct MCV MCH MCHC RDW Plt Count MPV Sodium Potassium Chloride Carbon Dioxide Anion Gap BUN Creatinine Creat Clearance w eGFR Random Glucose Calcium Total Bilirubin AST ALT Alkaline Phosphatase Total Protein Albumin Urine Color Urine Appearance Urine pH Ur Specific [place] Urine Protein Urine Glucose (UA) Urine Ketones Urine Blood Urine Nitrite Urine Bilirubin Urine Urobilinogen Ur Leukocyte Esterase Urine WBC (Auto) Urine RBC (Auto) Ur Epithelial Cells Urine Bacteria Hyaline Casts Urine Mucus RPR Titer Nonreactive Assessment: 10/25/17 11:39 WITHDRAWAL SX Plan: CONTINUE DETOX
[2017-10-25] MEDS: chlordiazePOXIDE HCL 10 MG CAPSULE PO SCH ×2 (16:58→22:28)
[2017-10-25] MEDS: ZOLPIDEM TARTRATE 10 MG TABLET (PARK CARE ONLY) PO PRN (21:55)
[2017-10-25] MEDS: ATORVASTATIN CA 10 MG TABLET (FP) PO SCH (22:28)
[2017-10-25] MEDS: THIAMINE HCL 100 MG TABLET (FP) PO SCH (22:28)
[2017-10-26] MEDS: chlordiazePOXIDE HCL 10 MG CAPSULE PO SCH (06:11)
[2017-10-26 06:18] VITALS: BP 145/83; PULSE 65; TEMP 98.4
--- NOTE | 2017-10-26 13:39 | PN ---
[facility] Progress Note (SOAP) Subjective: Patient denies current Detox symptoms and reports that he feels well overall. Objective: PATIENT A & O X 3, OBSERVED AMBULATING ON UNIT. NO ACUTE DISTRESS. 10/26/17 13:38 Vital Signs Temperature 98.4 F 10/26/17 06:17 Pulse Rate 65 10/26/17 06:17 Respiratory Rate 20 10/26/17 06:17 Blood Pressure 145/83 10/26/17 06:17 O2 Sat by Pulse Oximetry (%) Laboratory Tests 10/22/17 10/23/17 10/23/17 17:45 05:50 05:50 WBC 4.3 RBC 5.38 Hgb 12.9 Hct 40.3 MCV 74.8 L MCH 24.0 L MCHC 32.1 RDW 14.7 Plt Count 173 MPV 10.4 Sodium 140 Potassium 4.2 Chloride 106 Carbon Dioxide 24 Anion Gap 10 BUN 23 H D Creatinine 1.2 Creat Clearance w eGFR > 60 Random Glucose 127 H Calcium 8.5 Total Bilirubin 0.3 D AST 14 L D ALT 27 D Alkaline Phosphatase 38 L Total Protein 7.6 Albumin 3.8 Urine Color Yellow Urine Appearance Clear Urine pH 5.0 Ur Specific [place] 1.029 Urine Protein 1+ H Urine Glucose (UA) Negative Urine Ketones Negative Urine Blood Negative Urine Nitrite Negative Urine Bilirubin Negative Urine Urobilinogen Negative Ur Leukocyte Esterase Negative Urine WBC (Auto) 11 Urine RBC (Auto) 5 Ur Epithelial Cells Few Urine Bacteria Rare Hyaline Casts 11 Urine Mucus Many RPR Titer 10/23/17 05:50 WBC RBC Hgb Hct MCV MCH MCHC RDW Plt Count MPV Sodium Potassium Chloride Carbon Dioxide Anion Gap BUN Creatinine Creat Clearance w eGFR Random Glucose Calcium Total Bilirubin AST ALT Alkaline Phosphatase Total Protein Albumin Urine Color Urine Appearance Urine pH Ur Specific [place] Urine Protein Urine Glucose (UA) Urine Ketones Urine Blood Urine Nitrite Urine Bilirubin Urine Urobilinogen Ur Leukocyte Esterase Urine WBC (Auto) Urine RBC (Auto) Ur Epithelial Cells Urine Bacteria Hyaline Casts Urine Mucus RPR Titer Nonreactive LABS NOTED. Assessment: 10/26/17 13:38 COMPLETION OF DETOX REGIMEN Plan: PATIENT SCHEDULED FOR DISCHARGE FROM DETOX UNIT TODAY.
--- NOTE | 2017-10-26 13:44 | DS ---
[facility] Detox Discharge Summary Admission Date: 10/22/17 Discharge Date: 10/26/17 - History Present History: Alcohol Dependence, Cocaine Dependence Additional Comments: PATIENT ADVISED TO CONSIDER LOCAL 12-STEP/NA/AA OUTPATIENT SUPPORT GROUPS FOR AFTERCARE. PATIENT WAS DISCHARGED FROM DETOX UNIT IN STABLE MEDICAL CONDITION. Pertinent Past History: HTN, History of Lipoma, Insomnia, Nicotine Dependence. - Physical Exam Results Vital Signs: Vital Signs Temperature 98.4 F 10/26/17 06:17 Pulse Rate 65 10/26/17 06:17 Respiratory Rate 20 10/26/17 06:17 Blood Pressure 145/83 10/26/17 06:17 O2 Sat by Pulse Oximetry (%) Pertinent Admission Physical Exam Findings: WITHDRAWAL SYMPTOMS. Laboratory Tests 10/22/17 10/23/17 10/23/17 17:45 05:50 05:50 WBC 4.3 RBC 5.38 Hgb 12.9 Hct 40.3 MCV 74.8 L MCH 24.0 L MCHC 32.1 RDW 14.7 Plt Count 173 MPV 10.4 Sodium 140 Potassium 4.2 Chloride 106 Carbon Dioxide 24 Anion Gap 10 BUN 23 H D Creatinine 1.2 Creat Clearance w eGFR > 60 Random Glucose 127 H Calcium 8.5 Total Bilirubin 0.3 D AST 14 L D ALT 27 D Alkaline Phosphatase 38 L Total Protein 7.6 Albumin 3.8 Urine Color Yellow Urine Appearance Clear Urine pH 5.0 Ur Specific [place] 1.029 Urine Protein 1+ H Urine Glucose (UA) Negative Urine Ketones Negative Urine Blood Negative Urine Nitrite Negative Urine Bilirubin Negative Urine Urobilinogen Negative Ur Leukocyte Esterase Negative Urine WBC (Auto) 11 Urine RBC (Auto) 5 Ur Epithelial Cells Few Urine Bacteria Rare Hyaline Casts 11 Urine Mucus Many RPR Titer 10/23/17 05:50 WBC RBC Hgb Hct MCV MCH MCHC RDW Plt Count MPV Sodium Potassium Chloride Carbon Dioxide Anion Gap BUN Creatinine Creat Clearance w eGFR Random Glucose Calcium Total Bilirubin AST ALT Alkaline Phosphatase Total Protein Albumin Urine Color Urine Appearance Urine pH Ur Specific [place] Urine Protein Urine Glucose (UA) Urine Ketones Urine Blood Urine Nitrite Urine Bilirubin Urine Urobilinogen Ur Leukocyte Esterase Urine WBC (Auto) Urine RBC (Auto) Ur Epithelial Cells Urine Bacteria Hyaline Casts Urine Mucus RPR Titer Nonreactive LABS NOTED. - Treatment Hospital Course: Detox Protocol Followed, Detoxed Safely, Responded well, Discharged Condition Good Patient has Accepted a Rehab Referral to: PT. ADIVSED TO CONSIDER LOCAL 12-STEP/ NA/AA OUTPATIENT SUPPORT GROUPS. - Medication Discharge Medications: Ambulatory Orders Folic Acid - 1 mg PO DAILY 10/22/17 Mirtazapine 7.5 mg PO HS 10/22/17 Multivitamin [Daily Multiple Vitamin] 1 each PO DAILY 10/22/17 Enalapril Maleate [Vasotec -] 20 mg PO BID@1000,1800 #60 tablet 10/26/17 Hydrochlorothiazide [Hctz -] 25 mg PO DAILY #30 tablet 10/26/17 Metoprolol Tartrate [Lopressor -] 50 mg PO BID@1000,1800 #60 tablet 10/26/17 - Diagnosis (1) Alcohol dependence with uncomplicated withdrawal Status: Acute (2) Cocaine dependence, uncomplicated Status: Acute (3) Insomnia Status: Acute Qualifiers: Insomnia type: unspecified Qualified Code(s): G47.00 - Insomnia, unspecified (4) Lipoma Status: Acute Qualifiers: Lipoma location: head Qualified Code(s): D17.0 - Benign lipomatous neoplasm of skin and subcutaneous tissue of head, face and neck (5) Nicotine dependence Status: Acute Qualifiers: Nicotine product type: cigarettes Substance use status: in withdrawal Qualified Code(s): F17.213 - Nicotine dependence, cigarettes, with withdrawal (6) Hypertension Status: Chronic Qualifiers: Hypertension type: essential hypertension Qualified Code(s): I10 - Essential (primary) hypertension - AMA Did Patient Leave Against Medical Advice: No
== END 2017-10-26 08:49 | disposition home or self-care (01) | DRG 774 ==
LOC: YASAS 11:52 → Y3N 14:50
PROVIDERS: ADMIT Surgery; ATTEND Surgery
PROC: HZ2ZZZZ Detoxification Services for Substance Abuse Treatment (ICD-10-PCS; principal; 2017-10-22)
DX: F10.230 Alcohol dependence with withdrawal, uncomplicated (principal); F14.20 Cocaine dependence, uncomplicated; F17.213 Nicotine dependence, cigarettes, with withdrawal; I10 Essential (primary) hypertension; G47.00 Insomnia, unspecified; D17.0 Benign lipomatous neoplasm of skin and subcutaneous tissue of head, face and neck; E78.00 Pure hypercholesterolemia, unspecified; Z87.891 Personal history of nicotine dependence
CPT/HCPCS: 36415; 80053; 81003; 81015; 85027; 86593; 93005; 93010

== ENCOUNTER 2021-06-27 10:54 | Inpatient (IN) | payer OTHER ==
[2021-06-27] MEDS ORDERED: BISMUTH SUBSALICYLATE 262 MG/15 ML BTL PO PRN (11:47)
[2021-06-27] MEDS ORDERED: MAGNESIUM HYDROX 2400MG/30ML ORAL SUSPENSION 30 ML CUP PO PRN (11:47)
[2021-06-27] MEDS ORDERED: ONDANSETRON *ODT* 4 MG TABLET SL PRN (11:47)
[2021-06-27] MEDS ORDERED: ACETAMINOPHEN 325 MG TABLET (FP) PO PRN (11:47)
[2021-06-27] MEDS ORDERED: IBUPROFEN 400 MG TABLET (FP) PO PRN (11:47)
[2021-06-27] MEDS ORDERED: MAG HYDROX/AL HYDROX/SIMETH 30 ML UNIT-DOSE CUP PO PRN (11:47)
[2021-06-27] MEDS ORDERED: MENTHOL/PHENOL 1 EACH UD MM PRN (11:47)
[2021-06-27] MEDS ORDERED: NICOTINE 10 MG CARTRIDGE (INHALER) IH PRN (11:47)
[2021-06-27] MEDS ORDERED: chlordiazePOXIDE HCL 25 MG CAPSULE PO PRN (11:47)
[2021-06-27] MEDS ORDERED: LOPERAMIDE HCL 2 MG CAPSULE PO PRN (11:47)
[2021-06-27] MEDS ORDERED: MAGNESIUM CITRATE 300 ML BOTTLE PO PRN (11:47)
[2021-06-27 12:24] VITALS: BMI 34.5
[2021-06-27] MEDS: hydrOXYzine PAMOATE 25 MG CAPSULE (FP) PO SCH ×3 (13:30→22:07)
[2021-06-27] MEDS: PRENATAL VITAMINS W/ FOLIC ACID TABLET (FP) PO SCH (13:30)
[2021-06-27 14:50] LABS: CALCIUM 9.8 mg/dL (8.5-10.1)
[2021-06-27 14:51] LABS: ALBUMIN 3.7 g/dl (3.4-5.0); BLOOD UREA NITROGEN 19.7 mg/dL (7-18)
[2021-06-27 14:52] LABS: HEMATOCRIT 41.2 % (35.4-49); HEMOGLOBIN 13.1 GM/dL (11.7-16.9); MCH 23.7 pg (25.7-33.7); MCHC 31.9 g/dl (32.0-35.9); MEAN CELL VOLUME 74.4 fl (80-96); PLATELET COUNT 198 10^3/uL (134-434); RBC 5.55 M/mm3 (4.00-5.60); RDW 15.9 % (11.9-15.9); WHITE BLOOD COUNT 4.1 K/mm3 (4.0-10.0)
[2021-06-27 14:54] LABS: CREATININE 1.1 mg/dL (0.55-1.3)
[2021-06-27 14:56] LABS: BILIRUBIN,TOTAL 0.6 mg/dL (0.2-1); TOT PROT 7.3 g/dl (6.4-8.2)
[2021-06-27] MEDS: ENALAPRIL MALEATE 10 MG TABLET PO SCH (17:31)
[2021-06-27] MEDS: chlordiazePOXIDE HCL 25 MG CAPSULE PO SCH ×2 (17:31→22:07)
[2021-06-27] MEDS: METOPROLOL TARTRATE 50 MG TABLET (FP) PO SCH (17:31)
[2021-06-27] MEDS: METHOCARBAMOL 500 MG TABLET PO PRN (22:06)
[2021-06-27] MEDS: THIAMINE HCL 100 MG TABLET (FP) PO SCH (22:07)
[2021-06-27] MEDS: MELATONIN 5 MG TABLETS PO SCH (22:07)
[2021-06-28] MEDS: chlordiazePOXIDE HCL 25 MG CAPSULE PO SCH ×4 (06:18→22:36)
[2021-06-28] MEDS: hydrOXYzine PAMOATE 25 MG CAPSULE (FP) PO SCH ×5 (06:18→22:36)
[2021-06-28] MEDS: ENALAPRIL MALEATE 10 MG TABLET PO SCH ×2 (11:22→18:38)
[2021-06-28] MEDS: METOPROLOL TARTRATE 50 MG TABLET (FP) PO SCH ×2 (11:23→18:38)
[2021-06-28] MEDS: HYDROCHLOROTHIAZIDE 25 MG TABLET (FP) PO SCH (11:23)
[2021-06-28] MEDS: PRENATAL VITAMINS W/ FOLIC ACID TABLET (FP) PO SCH (11:23)
[2021-06-28] MEDS: THIAMINE HCL 100 MG TABLET (FP) PO SCH (22:36)
[2021-06-28] MEDS: MELATONIN 5 MG TABLETS PO SCH (22:36)
[2021-06-28] MEDS: METHOCARBAMOL 500 MG TABLET PO PRN (23:14)
[2021-06-29] MEDS: hydrOXYzine PAMOATE 25 MG CAPSULE (FP) PO SCH ×5 (06:35→22:23)
[2021-06-29] MEDS: chlordiazePOXIDE HCL 25 MG CAPSULE PO SCH ×4 (06:35→22:21)
[2021-06-29] MEDS: PRENATAL VITAMINS W/ FOLIC ACID TABLET (FP) PO SCH (11:14)
[2021-06-29] MEDS: ENALAPRIL MALEATE 10 MG TABLET PO SCH ×2 (11:14→18:16)
[2021-06-29] MEDS: METOPROLOL TARTRATE 50 MG TABLET (FP) PO SCH ×2 (11:15→18:16)
[2021-06-29] MEDS: ACETAMINOPHEN 325 MG TABLET (FP) PO PRN (11:15)
[2021-06-29] MEDS: HYDROCHLOROTHIAZIDE 25 MG TABLET (FP) PO SCH (11:15)
[2021-06-29 13:08] LABS: SARS-CoV-2 NAA Not Detected (Not Detected)
[2021-06-29] MEDS: THIAMINE HCL 100 MG TABLET (FP) PO SCH (22:21)
[2021-06-29] MEDS: MELATONIN 5 MG TABLETS PO SCH (22:21)
[2021-06-30] MEDS ORDERED: chlordiazePOXIDE HCL 10 MG CAPSULE PO PRN
[2021-06-30] MEDS: chlordiazePOXIDE HCL 10 MG CAPSULE PO SCH ×4 (06:00→22:38)
[2021-06-30] MEDS: hydrOXYzine PAMOATE 25 MG CAPSULE (FP) PO SCH ×5 (06:00→22:38)
[2021-06-30] MEDS: METHOCARBAMOL 500 MG TABLET PO PRN (10:04)
[2021-06-30] MEDS: METOPROLOL TARTRATE 50 MG TABLET (FP) PO SCH ×2 (10:04→18:43)
[2021-06-30] MEDS: PRENATAL VITAMINS W/ FOLIC ACID TABLET (FP) PO SCH (10:04)
[2021-06-30] MEDS: ENALAPRIL MALEATE 10 MG TABLET PO SCH ×2 (10:04→18:42)
[2021-06-30] MEDS: HYDROCHLOROTHIAZIDE 25 MG TABLET (FP) PO SCH (10:04)
[2021-06-30] MEDS: ACETAMINOPHEN 325 MG TABLET (FP) PO PRN ×2 (10:05→22:40)
[2021-06-30] MEDS: amLODIPine BESYLATE 5 MG TABLET (FP) PO SCH (12:10)
[2021-06-30] MEDS: MELATONIN 5 MG TABLETS PO SCH (22:38)
[2021-06-30] MEDS: THIAMINE HCL 100 MG TABLET (FP) PO SCH (22:38)
[2021-07-01] MEDS: chlordiazePOXIDE HCL 10 MG CAPSULE PO SCH ×2 (05:42→18:12)
[2021-07-01] MEDS: hydrOXYzine PAMOATE 25 MG CAPSULE (FP) PO SCH ×5 (05:42→22:42)
[2021-07-01] MEDS: METOPROLOL TARTRATE 50 MG TABLET (FP) PO SCH ×2 (10:18→18:12)
[2021-07-01] MEDS: METHOCARBAMOL 500 MG TABLET PO PRN ×2 (10:18→22:42)
[2021-07-01] MEDS: ENALAPRIL MALEATE 10 MG TABLET PO SCH ×2 (10:18→18:11)
[2021-07-01] MEDS: HYDROCHLOROTHIAZIDE 25 MG TABLET (FP) PO SCH (10:18)
[2021-07-01] MEDS: PRENATAL VITAMINS W/ FOLIC ACID TABLET (FP) PO SCH (10:18)
[2021-07-01] MEDS: amLODIPine BESYLATE 5 MG TABLET (FP) PO SCH (10:18)
[2021-07-01] MEDS: MELATONIN 5 MG TABLETS PO SCH (22:42)
[2021-07-01] MEDS: THIAMINE HCL 100 MG TABLET (FP) PO SCH (22:42)
[2021-07-02] MEDS ORDERED: chlordiazePOXIDE HCL 10 MG CAPSULE PO ONE (05:00)
[2021-07-02] MEDS: hydrOXYzine PAMOATE 25 MG CAPSULE (FP) PO SCH ×2 (06:44→10:54)
[2021-07-02 10:04] VITALS: BP 153/111; PULSE 93; TEMP 97.2
[2021-07-02] MEDS: ENALAPRIL MALEATE 10 MG TABLET PO SCH (10:53)
[2021-07-02] MEDS: METOPROLOL TARTRATE 50 MG TABLET (FP) PO SCH (10:53)
[2021-07-02] MEDS: HYDROCHLOROTHIAZIDE 25 MG TABLET (FP) PO SCH (10:54)
[2021-07-02] MEDS: amLODIPine BESYLATE 5 MG TABLET (FP) PO SCH (10:54)
[2021-07-02] MEDS: PRENATAL VITAMINS W/ FOLIC ACID TABLET (FP) PO SCH (10:54)
== END 2021-07-02 11:00 | disposition home or self-care (01) | DRG 774 ==
LOC: YASAS 10:54 → Y6N 12:49
PROVIDERS: ADMIT Allergy & Immunology; ATTEND Allergy & Immunology
PROC: HZ2ZZZZ Detoxification Services for Substance Abuse Treatment (ICD-10-PCS; principal; 2021-06-27)
DX: F10.230 Alcohol dependence with withdrawal, uncomplicated (principal); F14.20 Cocaine dependence, uncomplicated; F17.210 Nicotine dependence, cigarettes, uncomplicated; F19.282 Other psychoactive substance dependence with psychoactive substance-induced sleep disorder; F19.24 Other psychoactive substance dependence with psychoactive substance-induced mood disorder; I10 Essential (primary) hypertension; E78.00 Pure hypercholesterolemia, unspecified; D17.0 Benign lipomatous neoplasm of skin and subcutaneous tissue of head, face and neck; Z56.0 Unemployment, unspecified
CPT/HCPCS: 36415; 80053; 85027; 86780; C9803; U0003; U0005